=== PATIENT | male | born 1955 | race Caucasian/White ===

== ENCOUNTER 2020-11-28 18:15 | Emergency (ER) | payer OTHER ==
[2020-11-28 18:23] VITALS: BP 166/89; PULSE 56; BMI 33.5
[2020-11-28] MEDS ORDERED: KETOROLAC TROMETHAMINE 15 MG/ML VIAL IM ONE (18:50)
[2020-11-28] MEDS ORDERED: LIDOCAINE 5% TOPICAL PATCH TP ONE (18:50)
[2020-11-28] MEDS ORDERED: KETOROLAC TROMETHAMINE 15 MG/ML VIAL ONE (18:51)
[2020-11-28] MEDS ORDERED: LIDOCAINE 5% TOPICAL PATCH ONE (18:51)
[2020-11-28] MEDS ORDERED: LIDOCAINE PATCH REMOVAL MC SCH (22:00)
== END 2020-11-28 19:33 | disposition home or self-care (01) ==
LOC: JERFT 18:15
PROC: 3E0233Z Introduction of Anti-inflammatory into Muscle, Percutaneous Approach (ICD-10-PCS; principal; 2020-11-28)
DX: S46.811A Strain of other muscles, fascia and tendons at shoulder and upper arm level, right arm, initial encounter (principal); M25.511 Pain in right shoulder
CPT/HCPCS: 73030-TC-RT-FY; 99284-25

== ENCOUNTER 2020-12-13 11:28 | Emergency (ER) | payer OTHER ==
[2020-12-13 11:44] VITALS: BP 153/93; PULSE 57; TEMP 98.1; BMI 33.5
== END 2020-12-13 12:35 | disposition home or self-care (01) ==
LOC: JERFT 11:28
DX: M25.511 Pain in right shoulder (principal); M75.41 Impingement syndrome of right shoulder
CPT/HCPCS: 99282-25

== ENCOUNTER 2022-12-14 17:49 | Emergency (ER) | payer OTHER ==
[2022-12-14 17:57] VITALS: BP 139/78; PULSE 75; RESP 18; TEMP 98.2; BMI 35.3
[2022-12-14] MEDS ORDERED: LIDOCAINE 5% TOPICAL PATCH TP ONE ×2 (18:55→19:12)
[2022-12-14] MEDS ORDERED: KETOROLAC TROMETHAMINE 15 MG/ML VIAL IM ONE (18:55)
[2022-12-14] MEDS ORDERED: METHOCARBAMOL 500 MG TABLET PO ONE (18:57)
[2022-12-14] MEDS ORDERED: LIDOCAINE 5% TOPICAL PATCH ONE (19:13)
[2022-12-14] MEDS ORDERED: KETOROLAC TROMETHAMINE 15 MG/ML VIAL ONE (19:13)
[2022-12-14] MEDS ORDERED: METHOCARBAMOL 500 MG TABLET ONE (19:13)
[2022-12-14] MEDS ORDERED: LIDOCAINE PATCH REMOVAL MC SCH ×2 (22:00)
== END 2022-12-14 20:52 | disposition home or self-care (01) ==
LOC: JERFT 17:49
PROC: 3E0233Z Introduction of Anti-inflammatory into Muscle, Percutaneous Approach (ICD-10-PCS; principal; 2022-12-14)
DX: M54.2 Cervicalgia (principal); M62.838 Other muscle spasm
CPT/HCPCS: 96372; 99284-25

== ENCOUNTER 2023-02-11 11:22 | Emergency (ER) | payer OTHER ==
[2023-02-11 11:30] VITALS: BP 170/85; PULSE 63; RESP 18; TEMP 97.3; BMI 34.7
[2023-02-11] MEDS ORDERED: KETOROLAC TROMETHAMINE 30 MG/1 ML VIAL IM ONE (12:21)
[2023-02-11] MEDS ORDERED: LIDOCAINE 5% TOPICAL PATCH TP ONE (12:21)
[2023-02-11] MEDS ORDERED: METHOCARBAMOL 500 MG TABLET PO ONE (12:21)
[2023-02-11] MEDS ORDERED: LIDOCAINE 5% TOPICAL PATCH ONE (12:24)
[2023-02-11] MEDS ORDERED: KETOROLAC TROMETHAMINE 60 MG/2 ML VIAL ONE (12:25)
[2023-02-11] MEDS ORDERED: METHOCARBAMOL 500 MG TABLET ONE (12:25)
[2023-02-11] MEDS ORDERED: LIDOCAINE PATCH REMOVAL MC SCH (22:00)
== END 2023-02-11 13:23 | disposition home or self-care (01) ==
LOC: JERFT 11:22 → JER 11:22 → JERFT 13:23
PROC: 3E0233Z Introduction of Anti-inflammatory into Muscle, Percutaneous Approach (ICD-10-PCS; principal; 2023-02-11)
DX: M54.2 Cervicalgia (principal); S46.812A Strain of other muscles, fascia and tendons at shoulder and upper arm level, left arm, initial encounter; S46.811A Strain of other muscles, fascia and tendons at shoulder and upper arm level, right arm, initial encounter; X58.XXXA Exposure to other specified factors, initial encounter
CPT/HCPCS: 99284-25